=== PATIENT | male | born 1945 | race Caucasian/White ===

== ENCOUNTER 2020-09-03 20:05 | Inpatient (IN) | payer MEDICARE ==
[~2020-09-03] VITALS: Ht 170.2 cm; Wt 50.9 kg
[~2020-09-03 20:05] MED LIST: ATROVENT HFA12.9 GM INH; CERTAGEN1 EACH PO; LOPRESSOR25 MG PO; PATIENT'S OWN MED PO; POTASSIUM CHLO20 ME2 PO; PROVENTIL HFA6.7 GM INH
[2020-09-03 20:56] LABS: BASOPHIL 0.1 % (0-2); EOSINOPHIL 0 % (0-7); HCT 37.7 % (42.0-52.0); HGB 13.8 g/dl (13.2-18.0); LYMPHOCYTE 5.2 % (15-48); MCH 32.4 pg (25.0-31.0); MCHC 36.6 g/dL (32.0-36.0); MCV 88.5 fL (78.0-100.0); MONOCYTE 5.6 % (0-12); NEUTROPHIL 88.6 % (41-80); NRBC 0; PLT 313 K/uL (150-400); RBC 4.26 M/uL (4.70-6.00); WBC 12.2 K/uL (4.0-10.5)
[2020-09-03 20:57] LABS: BILIRUBIN 2+ mg/dL (NEGATIVE); BLOOD 1+ Ery/uL (NEGATIVE); CLARITY CLEAR (CLEAR); COLOR YELLOW (YELLOW); GLUCOSE (U) NORMAL (NORMAL); LEUKOCYTES NEGATIVE Leu/uL (NEGATIVE); NITRITE NEGATIVE (NEGATIVE); PROTEIN 1+ mg/dL (NEGATIVE); SPECIFIC GRAVITY 1.025 (1.001-1.030)
[2020-09-03 21:03] LABS: URINARY WBC RARE
[2020-09-03 21:04] LABS: BACTERIA TRACE; MUCOUS TRACE
[2020-09-03 21:18] LABS: ALKALINE PHOSHATASE 72 U/L (46-116); ALT 68 U/L (16-63); AST 171 U/L (15-37); BILIRUBIN - TOTAL 1.2 mg/dL (0.2-1.0); BUN 11 mg/dL (7-18); BUN/CREAT RATIO (CALC) 17.2 RATIO; CHLORIDE 77 mmol/L (98-107); CO2 (BICARBONATE) 24 mmol/L (21-32); CREATININE 0.64 mg/dL (0.67-1.17); GLUCOSE 88 mg/dL (74-106); POTASSIUM 4.3 mmol/L (3.5-5.1)
[2020-09-03 22:11] LABS: INR 1.26 (0.9-1.2)
[2020-09-03 22:22] LABS: LACTIC ACID 1.9 mmol/L (0.4-1.9)
[2020-09-03 22:24] LABS: MAGNESIUM 1.4 mg/dL (1.8-2.4); PHOSPHORUS 2.3 mg/dL (2.6-4.7)
[2020-09-04 01:39] LABS: CORONAVIRUS 2019 SARS-COV-2 NEGATIVE (NEGATIVE); INFLUENZA A NAA NEGATIVE (NEGATIVE)
[2020-09-04 06:01] LABS: BASOPHIL 0.1 % (0-2); EOSINOPHIL 0.2 % (0-7); HCT 35.3 % (42.0-52.0); HGB 12.8 g/dl (13.2-18.0); LYMPHOCYTE 6.8 % (15-48); MCHC 36.3 g/dL (32.0-36.0); MCV 88.3 fL (78.0-100.0); MONOCYTE 6.4 % (0-12); MPV 8.9 fL (6.0-9.5); NEUTROPHIL 85.9 % (41-80); NRBC 0; PLT 270 K/uL (150-400); WBC 10.4 K/uL (4.0-10.5)
[2020-09-04 06:29] LABS: ALBUMIN 2.5 g/dL (3.4-5.0); BILIRUBIN - TOTAL 0.9 mg/dL (0.2-1.0); BUN/CREAT RATIO (CALC) 12.9 RATIO; CREATININE 0.7 mg/dL (0.67-1.17); GLOBULIN (CALCULATION) 2.5 g/dL; POTASSIUM 3.7 mmol/L (3.5-5.1)
[2020-09-04 07:09] LABS: AMPHETAMINES NEGATIVE (NEGATIVE); BARBITURATES NEGATIVE (NEGATIVE); ECSTASY (MDMA) NEGATIVE (NEGATIVE); MARIJUANA (THC) NEGATIVE (NEGATIVE); METHADONE NEGATIVE (NEGATIVE); OPIATES NEGATIVE (NEGATIVE); OXYCODONE NEGATIVE (NEGATIVE)
[2020-09-04 11:58] LABS: BUN/CREAT RATIO (CALC) 11.9 RATIO; CREATININE 0.67 mg/dL (0.67-1.17); POTASSIUM 3.4 mmol/L (3.5-5.1)
[2020-09-04 18:24] LABS: BUN/CREAT RATIO (CALC) 10.1 RATIO; CREATININE 0.69 mg/dL (0.67-1.17); POTASSIUM 3.3 mmol/L (3.5-5.1)
[2020-09-05 00:50] LABS: CREATININE 0.7 mg/dL (0.67-1.17)
[2020-09-05 01:12] LABS: POTASSIUM 3.2 mmol/L (3.5-5.1)
[2020-09-05 06:20] LABS: BASOPHIL 0.5 % (0-2); EOSINOPHIL 0.4 % (0-7); HCT 29.5 % (42.0-52.0); HGB 10.6 g/dl (13.2-18.0); LYMPHOCYTE 4.7 % (15-48); MCH 32.4 pg (25.0-31.0); MCHC 35.9 g/dL (32.0-36.0); MCV 90.2 fL (78.0-100.0); MONOCYTE 4.9 % (0-12); MPV 9.4 fL (6.0-9.5); NEUTROPHIL 88.7 % (41-80); NRBC 0; PLT 226 K/uL (150-400); RBC 3.27 M/uL (4.70-6.00); RDW 12.3 % (11.5-14.0); WBC 9.4 K/uL (4.0-10.5)
[2020-09-05 06:42] LABS: BUN/CREAT RATIO (CALC) 5.7 RATIO; CREATININE 0.7 mg/dL (0.67-1.17); POTASSIUM 3.6 mmol/L (3.5-5.1)
[2020-09-05 06:43] LABS: MAGNESIUM 1.7 mg/dL (1.8-2.4)
[2020-09-05 14:15] LABS: BUN/CREAT RATIO (CALC) 5.2 RATIO; CREATININE 0.77 mg/dL (0.67-1.17); POTASSIUM 3.7 mmol/L (3.5-5.1)
--- NOTE | 2020-09-05 21:11 | NUR ---
Pt coughing up thick secretions, bedside nurse attempting to help patient manage secretions by using yankuer to avoid pt from swallowing these secretions. pt states "get that damn thing away from me. i am going to take that and stick it up your ass" Bedside nurse leaving room at this time to allow patient time to decompress. cody remains at bedside to avoid patient from choking on these thick secretions.
[2020-09-05 22:36] LABS: BUN/CREAT RATIO (CALC) 5.8 RATIO; CREATININE 0.69 mg/dL (0.67-1.17); POTASSIUM 3.8 mmol/L (3.5-5.1)
[2020-09-06 07:12] LABS: BUN/CREAT RATIO (CALC) 4.5 RATIO; CREATININE 0.66 mg/dL (0.67-1.17); POTASSIUM 4.1 mmol/L (3.5-5.1)
[2020-09-06 14:38] LABS: BUN/CREAT RATIO (CALC) 5.9 RATIO; CREATININE 0.68 mg/dL (0.67-1.17)
--- NOTE | 2020-09-06 15:14 | NUR ---
09/06/20 Mr. Vaughan lives in a basement apartment in the home of his niece, Yuniel Raygoza, and her spouse. Mr. Vaughan was indepedent with mobilty prior to admission. This director of social services met with Mr. Vaughan and his daughter, Daija Liriano of [place], [place]. Ms. Liriano would like her father to come to her home after he has had renetta. He will need to be able to independently go to the bathroom at her home. The [facility] in [place], [place]. - Will monitor for anticipated discharge date.
[2020-09-06 22:12] LABS: BUN/CREAT RATIO (CALC) 8.5 RATIO; CREATININE 0.59 mg/dL (0.67-1.17)
[2020-09-06 22:15] LABS: POTASSIUM 6.4 mmol/L (3.5-5.1)
[2020-09-07 04:47] LABS: BASOPHIL 0.6 % (0-2); EOSINOPHIL 2.5 % (0-7); HCT 33.5 % (42.0-52.0); HGB 10.9 g/dl (13.2-18.0); LYMPHOCYTE 8.5 % (15-48); MCH 32.2 pg (25.0-31.0); MCHC 32.5 g/dL (32.0-36.0); MONOCYTE 6.6 % (0-12); MPV 9.2 fL (6.0-9.5); NEUTROPHIL 81.3 % (41-80); NRBC 0; PLT 238 K/uL (150-400); RBC 3.38 M/uL (4.70-6.00); RDW 13.5 % (11.5-14.0); WBC 7.7 K/uL (4.0-10.5)
[2020-09-07 04:48] LABS: MCV 99.1 fL (78.0-100.0)
[2020-09-07 05:03] LABS: BUN/CREAT RATIO (CALC) 7.8 RATIO; CREATININE 0.64 mg/dL (0.67-1.17)
[2020-09-07 05:06] LABS: POTASSIUM 4.1 mmol/L (3.5-5.1)
[2020-09-08 06:49] LABS: BASOPHIL 0.5 % (0-2); EOSINOPHIL 2.4 % (0-7); HGB 11.5 g/dl (13.2-18.0); LYMPHOCYTE 7.6 % (15-48); MCH 32.6 pg (25.0-31.0); MCHC 33.8 g/dL (32.0-36.0); MCV 96.3 fL (78.0-100.0); MONOCYTE 5.8 % (0-12); NEUTROPHIL 82.9 % (41-80); NRBC 0; PLT 280 K/uL (150-400); RBC 3.53 M/uL (4.70-6.00); RDW 13.5 % (11.5-14.0); WBC 8.8 K/uL (4.0-10.5)
[2020-09-08 07:14] LABS: BUN/CREAT RATIO (CALC) 9.4 RATIO; CREATININE 0.64 mg/dL (0.67-1.17); POTASSIUM 3.6 mmol/L (3.5-5.1)
--- NOTE | 2020-09-08 10:28 | NUR ---
09/08/20 Referrals have been sent to [facility] and [facility]. A referral will be sent to [facility] when therapy notes are available.
--- NOTE | 2020-09-08 15:10 | NUR ---
09/08/20 [facility] is reviewing for possible admission.
--- NOTE | 2020-09-08 16:14 | NUR ---
09/08/20 [facility] will accept Mr. Vaughna for admission on 09/09/20. He meets criteria for EMS transport per MS KENDRA Byrd. A report was given to Dr. Villalobos. Patient was informed. Daija Liriano, daughter, was informed via voicemail.
[2020-09-09 06:15] LABS: HCT 32.9 % (42.0-52.0); HGB 11.3 g/dl (13.2-18.0); MCH 32.6 pg (25.0-31.0); MCHC 34.3 g/dL (32.0-36.0); MCV 94.8 fL (78.0-100.0); MPV 8.8 fL (6.0-9.5); RBC 3.47 M/uL (4.70-6.00); RDW 13.6 % (11.5-14.0)
[2020-09-09 07:07] LABS: BUN/CREAT RATIO (CALC) 9.4 RATIO; CREATININE 0.64 mg/dL (0.67-1.17); POTASSIUM 3.7 mmol/L (3.5-5.1)
--- NOTE | 2020-09-09 09:12 | NUR ---
09/09/20 MS KENDRA Hoskins, was informed of discharge to [facility] today via EMS.
[2020-09-09] MEDS ORDERED: AUGMENTIN 875-1 EACH PO (11:46)
== END 2020-09-09 17:52 | DRG 177 ==
LOC: FER 20:05 → FICU 09-04 01:14 → FMS 09-08 11:00
PROVIDERS: Allergy & Immunology Allergy; Emergency Medicine; Hospitalist; Internal Medicine Nephrology; Nurse Practitioner; ADMIT Internal Medicine
DX: J69.0 Pneumonitis due to inhalation of food and vomit (principal); G93.41 Metabolic encephalopathy; E87.1 Hypo-osmolality and hyponatremia; J98.11 Atelectasis; T17.890A Other foreign object in other parts of respiratory tract causing asphyxiation, initial encounter; E83.42 Hypomagnesemia; R00.0 Tachycardia, unspecified; F10.10 Alcohol abuse, uncomplicated; J44.9 Chronic obstructive pulmonary disease, unspecified; I95.9 Hypotension, unspecified; Z20.822 Contact with and (suspected) exposure to COVID-19; I11.0 Hypertensive heart disease with heart failure; I50.9 Heart failure, unspecified; J43.9 Emphysema, unspecified; R53.1 Weakness; L89.151 Pressure ulcer of sacral region, stage 1
CPT/HCPCS: 36415; 71045; 71275; 80048; 80053; 80305; 81001; 82140; 83605; 83735; 83935; 84100; 84295; 84300; 84443; 84484; 85025; 85610; 87040; 87088; 92526; 93005; 94010; 94640; 94667; 94668; 97162; 97166; 97530-GP; 97535; A4216; C9113; G0480; J0610; J1650; J2543; J3411; J3475; J3480; J7030; J7040; J7070; J7120; P9046; Q9967; U0002